=== PATIENT | female | born 1990 ===

== ENCOUNTER 2025-03-04 08:15 | Outpatient (AMB) | payer OTHER, SELFPAY ==
--- OUTSIDE RECORDS SUMMARY | 2025-03-04 09:47 | XMS_ITS | Clinical Summary ---
Author Organization [address] [facility] Address [address] [place] [address] Phone Care Team Providers Care Peer Specialist Name Role Phone Yuki Torres MD Primary Care Provider [phone] Allergies Active Allergy Reactions Criticality Noted Date Comments Latex 09/14/2020 Medications folic acid (FOLVITE) 1 mg tabletIndicatio ns:Adult general medical exam,Screening, anemia, deficiency, iron Take 1 tablet (1 mg total) by mouth 1 (one) time each day. 30 each 11 03/08/2024 03/08/19 26 Active multivitamin with minerals tablet Take 1 tablet by mouth 1 (one) time each day. Active clotrimazole-be tamethasone (LOTRISONE) 1-0.05 % creamIndication s:Skin lesion Apply thin layer to affected area BID for 2 weeks then stop. Avoid face and groin. 30 g 11/29/2024 Active Hospital, Clinic, or Other Facility Administered Medication Ordered Dose Route Frequency Start Date End Date Status acetaminophen (TYLENOL) tablet 500 mgIndications:Chronic bilateral back pain, unspecified back location 500 mg oral Every 6 hours PRN 03/08/2024 Active Active Problems Problem Noted Date Diagnosed Date Prediabetes 12/03/2024 Abdominal pain 02/03/2024 Acne 02/03/2024 Class 2 obesity 02/03/2024 Anxiety 01/31/2023 Depression 07/09/2015 Endometriosis 07/09/2015 Overview (01/25/2024): S/p lap exploratory Dr. Henderson Frequent headaches 02/10/2014 Overview (01/25/2024): CT head negative at [facility] 12/2013 Encounters Date Type Department Care Team Description 12/17/2024 Telephone Internal Medicine - [address] [phone] Sarah Muñoz MA 12/14/2024 11:50 PM EDT - 12/15/2024 4:00 AM EDT Emergency [facility] [address] [place] [address] Chest pain, unspecified type (Primary Dx) Discharge Disposition: Home or Self Care 12/03/2024 Telephone Internal Medicine - [address] [phone] Yuki Torres MD 12/03/2024 [facility] [address] [place] [phone] Loyd Stark NP 12/03/2024 Telephone Internal Medicine - [address] [phone] Yuki Torres MD from Last 3 Months Immunizations Immunization Administration Dates Next Due DTaP (Infanrix) 6wks to less than 7yo ,08/27/1990,1989,1989,1989 Hep B, Unspecified 04/22/2004,02/16/2002, 002 Hepatitis B (Zdpnsol-V-Gcjyh , Recombivax HB-Adult) 19yo and older 01/31/2023,12/26/2022 HiB 06/26/1990 Influenza Quadravalent, MDCK , 0.5ml, preservative free (Flucelvax) 6mo and older 11/11/2022 MMR, measles mumps and rubel la Live (Priorix; M-M-R II) 12mo and older 01/31/2023,12/16/2022,07/26/1994,1990 No Vaccine Administered 05/23/1993,08/27,1989,1989 Td, Unspecified 11/09/2001 Tdap Tetanus diptheria acell ular pertussis (Boostrix; Adacel) 7yo and older 05/10/2019,08/07/2013 Surgical History Surgery Date Site/Laterality Comments SECTION PROCEDURE: DC DELIVERY ONLY; COMMENT: x3 OTHER SURGICAL HISTORY 2009 PROCEDURE: DC UNLISTED PX ABDOMEN MUSCULOSKELETAL SYSTEM; COMMENT: lap for endometriosis PARTIAL HYSTERECTOMY 02/2019 PROCEDURE: DC SUPRACERVICAL ABDL HYSTER W/WO RMVL TUBE OVARY; COMMENT: Dr. Henderson OTHER SURGICAL HISTORY PROCEDURE: HISTORICAL COSMETIC SURGERY; COMMENT: liposuction 09/2018 Medical History Medical History Date Comments Endometriosis 07/09/2015 DX:Endometriosis Depression 07/09/2015 DX:Depression Family History Medical History Relation Name Comments No Known Problems Brother 1 No Known Problems Father Thyroid disease Mother Other: unsure Other No Known Problems Sister 2 Relation Name Status Comments Brother 1 Alive Father Alive Mother Alive Other Sister 2 Alive Social History Tobacco Use Types Packs/Day Years Used Date Smoking Tobacco: Never Smokeless Tobacco: Never Tobacco Cessation:Counseling Given: Not Answered Alcohol Use Standard Drinks/Week Comments Yes 0 (1 standard drink = 0.6 oz pur e alcohol) SOCIALLY Comments No Sex and Gender Information Value Date Recorded Sex Assigned at Not on file Legal Sex Female 8:16 PM EST Gender Identity Not on file Sexual Orientation Not on file Last Filed Vital Signs Vital Sign Reading Time Taken Comments Blood Pressure 114/70 12/15/2024 1:24 AM EDT Pulse 87 12/15/2024 1:24 AM EDT Temperature 36.7 C (98 F) 12/15/2024 1:24 AM EDT Respiratory Rate 20 12/15/2024 1:24 AM EDT Oxygen Saturation 100% 12/15/2024 1:24 AM EDT Inhaled Oxygen Concentration - - Weight 82.1 kg (181 lb) 12/14/2024 8:22 PM EDT Height 160 cm (5' 3 ) 12/14/2024 8:22 PM EDT Body Mass Index 32.06 12/14/2024 8:22 PM EDT Plan of Treatment Upcoming Encounters Date Type Department Care Team (Late st Contact Info) Description 03/11/2025 3:10 PM EST Consult Pulmonology - [address] [place] [address] Chinyere Yeh NP [address] [place] [phone] Health Maintenance Due Date Last Done Comments Cervical Cancer Screening: Pap Smear 2010 HPV Vaccines (1 - 3-dose SCDM series) 01/28/2016 Social Influencers of Health Screening 02/05/2022 Depression Screening 03/06/2024 05/01/2023 COVID-19 Vaccine ( season) 2024 Influenza Vaccine (#1) 2024 11/11/2022 DTaP,Tdap,and Td Vaccines (9 - Td or Tdap) 05/09/2029 05/10/2019, 08/07/2013, 11/09/2001, Additional history exists Cholesterol Screening (Lipid Panel) 11/29/2029 11/29/2024, 05/13/2019 RSV Immunization Adult Patients (1 - 1-dose 75+ series) 01/28/2064 HIB Vaccines Completed 06/26/1990 Hepatitis C Screening Completed 11/25/2020 HIV Screening Completed 01/12/2021 Hepatitis B Vaccines Completed 01/31/2023, 12/26/2022, 04/22/2004, Additional history exists MMR Vaccines Completed 01/31/2023, 12/04, 07/26/1994, Additional history exists Hepatitis A Vaccines Aged Out No long er eligible based on patient's age to complete this topic IPV Vaccines Aged Out No longer eligi ble based on patient's age to complete this topic Meningococcal ACWY Vaccine Aged Out N o longer eligible based on patient's age to complete this topic Meningococcal B Vaccine Aged Out No l onger eligible based on patient's age to complete this topic Pneumococcal Vaccine: Pediatrics (0 to 5 Years) and At-Risk Patients (6 to 49 Years) Aged Out No longer eligible based on patient's age to complete this topic RSV Immunization Patients Under 20 months Aged Out No longer eligible based on patient's age to complete this topic Varicella Vaccines Aged Out No longer eligible based on patient's age to complete this topic Procedures Procedure Name Priority Date/Time Associated Diagnosis Comments CT ANGIO CHEST WO AND/OR W CONTRAST STAT 12/15/2024 2:53 AM EDT Chest pain, unspecified type ACTIVATED PARTIAL THROMBOPLASTIN TIME STAT 12/15/2024 1:51 AM EDT PROTHROMBIN TIME WITH INR STAT 12/15/2024 1:51 AM EDT D-DIMER STAT 12/15/2024 1:51 AM EDT TROPONIN I HIGH SENSITIVITY STAT 12/15/2024 12:20 AM EDT XR CHEST 2 VIEWS STAT 12/14/2024 10:0 1 PM EDT PROCALCITONIN Add-On 12/14/2024 8:45 PM EDT HCG, SERUM, QUALITATIVE STAT Add-on 12/14/2024 8:45 PM EDT CBC WITH AUTO DIFFERENTIAL STAT 12/14/2024 8:45 PM EDT B-TYPE NATRIURETIC PEPTIDE STAT 12/14/2024 8:45 PM EDT MAGNESIUM STAT 12/14/2024 8:45 PM EDT LIPASE STAT 12/14/2024 8:45 PM EDT COMPREHENSIVE METABOLIC PANEL STAT 12/14/2024 8:45 PM EDT CBC AND DIFFERENTIAL STAT 12/14/2024 8:45 PM EDT TROPONIN I HIGH SENSITIVITY Timed 12/14/2024 8:45 PM EDT ECG 12-LEAD STAT 12/14/2024 8:17 PM EDT ECG 12-LEAD Routine 12/03/2024 7:31 AM EDT Chest pain, unspecified type LIPID PANEL WITH REFLEX TO DIRECT LDL Routine 11/29/2024 12:19 PM EDT Chest pain, unspecified type DEPRESSION SCREENING Routine 05/01/2023 HIV SCREENING Routine 01/12/2021 HEPATITIS C SCREENING Routine 11/25/2020 from Last 3 Months or Most Recently Relevant to Health Maintenance Results * CT Angio Chest wo and/or w Contrast (12/15/2024 2:53 AM EDT) Anatomical Region Laterality Modality Body Computed Tomogra phy 12/15/2024 3:31 AM EDT Impressions 12/15/2024 3:31 AM EDT No pulmonary emboli. Mild dilation pulmonary trunk may be indicative of pulmonary arterial hypertension. No infiltrates or edema. This document has been electronically signed by: Joseph Joyce MD on 12/15/2024 03:31:10 Narrative 12/15/2024 3:31 AM EDT INDICATION: pain right side eval PE CT angiography chest with contrast. 3D Postprocessing. Comparison: None provided. Findings: No pulmonary embolism. Mild dilation pulmonary trunk may be indicative of pulmonary arterial hypertension. No thoracic aortic aneurysm. No cardiomegaly. No focal infiltrates or masses. No edema. No pneumothorax No significant pleural effusion. No adenopathy. No acute upper abdominal pathology. No acute chest wall pathology. No acute fracture or dislocation. Procedure Note Joseph Joyce MD - 12/15/2024 INDICATION: pain right side eval PE CT angiography chest with contrast. 3D Postprocessing. Comparison: None provided. Findings: No pulmonary embolism. Mild dilation pulmonary trunk may be indicativeof pulmonary arterial hypertension. No thoracic aortic aneurysm. No cardiomegaly. No focal infiltrates or masses. No edema. No pneumothorax No significant pleural effusion. No adenopathy. No acute upper abdominal pathology. No acute chest wall pathology. No acute fracture or dislocation. IMPRESSION: No pulmonary emboli. Mild dilation pulmonary trunk may be indicative of pulmonary arterial hypertension. No infiltrates or edema. This document has been electronically signed by: Joseph Joyce MD on 12/15/2024 03:31:[address] IM[address] PROCEDURES Final Res ult * APTT (12/15/2024 1:51 AM EDT) aPTT 33.0 24.1 - 39.3 sec LAB COAGULATION METHOD 12/15/2024 2:10 AM EDT [facility] Blood Venous blood specimen / Unknown Venipuncture / Unknown 12/15/2024 1:51 AM EDT 12/15/2024 1:55 AM EDT Mohsen VALERIO LAB BLOOD ORDERABLES Final Result Performing Organization Address [facility] de Phone Number [facility] [address] [place] [address], [place] [phone] * Protime-INR (12/15/2024 1:51 AM EDT) [facility] Protime 13.8 10.6 - 13.9 sec LAB COAGULATION METHOD 12/15/2024 2:10 AM EDT [facility] INR 1.1 LAB COAGULATION METHOD 12/15/2024 2:10 AM EDT [facility] Blood Venous blood specimen / Unknown Venipuncture / Unknown 12/15/2024 1:51 AM EDT 12/15/2024 1:55 AM EDT us Mohsen VALERIO LAB BLOOD ORDERABLES Final Result Performing Organization Address [facility]/ZIP Co de Phone Number [facility] [address] [place] [address], [place] [phone] * D-Dimer (Quantitative) (12/15/2024 1:51 AM EDT) D-Dimer, Quant (D-DU) 155 <=230 ng/mL DDU LAB COAGULATION METHOD 12/15/2024 2:10 AM EDT [facility] Blood Venous blood specimen / Unknown Venipuncture / Unknown 12/15/2024 1:51 AM EDT 12/15/2024 1:55 AM EDT [facility] - 12/15/2024 2:10 AM EDT D-Dimer <230 ng/mL (D-Dimer units) is the threshold for exclusion of DVT/PE. D-Dimer may be elevated in: Critically ill, severely infected, trauma patients, DIC, acute CVA, acute ND, unstable angina, AF, old age, , and smoking. D-Dimer may be decreased with: Initiation of heparin therapy and oral anticoagulants. Mohsen VALERIO LAB BLOOD ORDERABLES Final Result [facility] [address] [place] [address], * Troponin I high sensitivity (12/15/2024 12:20 AM EDT) Only the most recent of2 resultswithin the time period is included. High Sensitivity Troponin I <3 <=54 ng/L LAB CHEMISTRY METHOD 12/15/2024 1:11 AM EDT [facility] Blood Venous blood specimen / Unknown Venipuncture / Unknown 12/15/2024 12:20 AM EDT 12/15/2024 12:41 AM EDT [facility] - 12/15/2024 1:11 AM EDT High levels of biotin in samples may falsely decrease hsTroponin values. Use caution when interpreting hsTroponin results in patients taking biotin who exhibit renal impairment (eGFR <60) or in patients taking more than 20 mg/day of biotin. us Mohsen VALERIO LAB BLOOD ORDERABLES Final Result [facility] [address] [facility] [place] [address], * XR Chest 2 Views (12/14/2024 10:01 PM EDT) Anatomical Region Laterality Modality Body Radiographic Kika ging 12/15/2024 12:1 0 PM EDT Impressions 12/15/2024 12:10 PM EDT No evidence of active pulmonary disease. [id number] -------- FINAL REPORT -------- Dictated By: Shannan Prabhakar Dictated Date: 12/15/2024 12:10 ET Assigned Physician: Shannan Prabhakar Reviewed and Electronically Signed By: Shannan Prabhakar Signed Date: 12/15/2024 12:10 ET Workstation ID: [id number] Transcribed By: Self Edit Transcribed Date: 12/15/2024 12:10 ET Narrative 12/15/2024 12:10 PM EDT INDICATION: Chest pain FINDINGS: Two views of the chest were obtained. There are no prior studies available for comparison. Lung colunga are well inflated without infiltrates or effusions. Cardiomediastinal silhouette is normal in size and shape. Bony structures are within normal limits for the patient's age. Procedure Note Shannan Prabhakar MD - 12/15/2024 INDICATION: Chest pain FINDINGS: Two views of the chest were obtained. There are no prior studiesavailable for comparison. Lung colunga are well inflated without infiltrates or effusions. Cardiomediastinal silhouette is normal in size and shape. Bony structures are within normal limits for the patient's age. IMPRESSION: No evidence of active pulmonary disease. [id number] -------- FINAL REPORT -------- Dictated By: Shannan Prabhakar Dictated Date: 12/15/2024 12:10 ET Assigned Physician: Shannan Prabhakar Reviewed and Electronically Signed By: Shannan Prabhakar Signed Date: 12/15/2024 12:10 ET Workstation ID: [id number] Transcribed By: Self Edit Transcribed Date: 12/15/2024 12:10 ET Mohsen VALERIO IMG XR PROCEDURES Final Res ult * Procalcitonin (12/14/2024 8:45 PM EDT) Pathologist [facility] Procalcitonin <0.02 <=0.16 ng/mL LAB CHEMISTRY METHOD 12/15/2024 10:47 AM EDT [facility] Blood Venous blood specimen / Unknown Venipuncture / Unknown 12/14/2024 8:45 PM EDT 12/14/2024 8:53 PM EDT Narrative [facility] - 12/15/2024 10:47 AM EDT Procalcitonin > 2.00 ng/ml: Procalcitonin Levels above 2.00 ng/ml, on the first day of ICU admission represent a high risk for progression to severe sepsis and/or septic shock. Procalcitonin < 0.50 ng/ml: Procalcitonin levels below 0.50 ng/ml on the first day of ICU admission represent a low risk for progression to severe sepsis and/or septic shock. Concentrations <0.5 ng/mL do not exclude an infection, on account of local ized infections (without systemic signs) which can be associated with such low concentrations, or a systemic infection in its initial stages (<6 hours). Furthermore, increased procalcitonin can occur without infection. PCT concentrations between 0.5 and 2.0 ng/mL should be interpreted taking into account the patient's history. It is recommended to retest PCT within 6-24 hours if any concentrations <2.0 ng/mL are obtained. Mohsen VALERIO LAB BLOOD ORDERABLES Final Result [facility] [address] [place] [address], [place] [phone] * (ABNORMAL) CBC auto differential (12/14/2024 8:45 PM EDT) Pathologist [facility] WBC 6.3 4.8 - 10.8 K/mcL LAB HEMETOLOGY METHOD 12/14/2024 8:59 PM EDT [facility] RBC 4.70 3.80 - 4.80 M/mcL LAB HEMETOLOGY METHOD 12/14/2024 8:59 PM EDT [facility] Hemoglobin 11.7 11.5 - 16.0 g/dL LAB HEMETOLOGY METHOD 12/14/2024 8:59 PM EDT [facility] Hematocrit 36.7 35.0 - 47.0 % LAB HEMETOLOGY METHOD 12/14/2024 8:59 PM EDT [facility] MCV 78.8(L) 79.0 - 98.0 FL LAB HEMETOLOGY METHOD 12/14/2024 8:59 PM EDT [facility] MCH 25.1(L) 27.0 - 32.0 pcg LAB HEMETOLOGY METHOD 12/14/2024 8:59 PM EDT [facility] MCHC 31.9(L) 32.0 - 37.0 g/dL LAB HEMETOLOGY METHOD 12/14/2024 8:59 PM EDT [facility] RDW 12.8 11.0 - 15.0 % LAB HEMETOLOGY METHOD 12/14/2024 8:59 PM EDT [facility] Platelets 302 130 - 400 K/[facility] LAB HEMETOLOGY METHOD 12/14/2024 8:59 PM EDT [facility] MPV 10.1 7.0 - 11.0 FL LAB HEMETOLOGY METHOD 12/14/2024 8:59 PM EDT [facility] NRBC 0.0 <1.0 % LAB HEMETOLOGY METHOD 12/14/2024 8:59 PM EDT [facility] NRBC Absolute 0.00 <0.10 K/[facility] LAB HEMETOLOGY METHOD 12/14/2024 8:59 PM EDT [facility] Neutrophils Relative 56.4 % LAB HEMETOLOGY METHOD 12/14/2024 8:59 PM EDT [facility] Lymphocytes Relative 37.6 % LAB HEMETOLOGY METHOD 12/14/2024 8:59 PM EDT [facility] Monocytes Relative 4.4 % LAB HEMETOLOGY METHOD 12/14/2024 8:59 PM EDT [facility] Eosinophils Relative 1.1 % LAB HEMETOLOGY METHOD 12/14/2024 8:59 PM EDT [facility] Basophils Relative 0.3 % LAB [facility]OLOGY [facility] Immature Granulocytes Relative 0.2 % LAB HEMETOLOGY METHOD 12/14/2024 8:59 PM [facility] Neutrophils Absolute 3.56 1.50 - 7.00 K/mcL LAB HEMETOLOGY METHOD 12/14/2024 8:59 PM EDT [facility] Lymphocytes Absolute 2.37 1.00 - 5.00 K/mcL LAB HEMETOLOGY METHOD 12/14/2024 [facility] Monocytes Absolute 0.28 0.20 - 1.00 K/mcL LAB HEMETOLOGY METHOD 12/14/2024 8:[facility] Eosinophils Absolute 0.07 0.00 - 0.50 K/mcL LAB HEMETOLOGY METHOD 12/14/2024 8:59 PM EDT [facility] Basophils Absolute 0.02 0.00 - 0.20 K/mcL LAB HEMETOLOGY METHOD 12/14/2024 8:59 PM [facility] Immature Granulocytes Absolute 0.01 0.00 - 0.03 K/mcL LAB HEMETOLOGY METHOD 12/14/2024 8:59 PM [facility] Blood Venous blood specimen / Unknown Venipuncture / Unknown 12/14/2024 8:45 PM EDT 12/14/2024 8:53 PM EDT us Mohsen VALERIO LAB BLOOD ORDERABLES Final Result Performing Organization Address [facility]/ZIP Co de Phone Number [facility] [address] [place] [address], [place] [phone] * hCG, serum, qualitative (12/14/2024 8:45 PM EDT) [facility] hCG Qual Negative Negative 12/14/2024 9:51 PM EDT [facility] Blood Venous blood specimen / Unknown Venipuncture / Unknown 12/14/2024 8:45 PM EDT 12/14/2024 8:53 PM EDT us Mohsen VALERIO LAB BLOOD ORDERABLES Final Result Performing Organization Address [facility] Co de Phone Number [facility] [address] [place] [address], [place] [phone] * B-type natriuretic peptide (12/14/2024 8:45 PM EDT) [facility] BNP <2 <=100 pcg/mL LAB CHEMISTRY METHOD 12/14/2024 9:27 PM EDT [facility] Blood Venous blood specimen / Unknown Venipuncture / Unknown 12/14/2024 8:45 PM EDT 12/14/2024 8:53 PM EDT us Mohsen VALERIO LAB BLOOD ORDERABLES Final Result Performing Organization Address [facility]/ZIP Co de Phone Number [facility] [address] [place] [address], [place] [phone] * Magnesium (12/14/2024 8:45 PM EDT) [facility] Magnesium 2.2 1.9 - 2.6 mg/dL LAB CHEMISTRY METHOD 12/14/2024 9:19 PM EDT [facility] Blood Venous blood specimen / Unknown Venipuncture / Unknown 12/14/2024 8:45 PM EDT 12/14/2024 8:53 PM EDT Mohsen VALERIO LAB BLOOD ORDERABLES Final Result Performing Organization Address City/[facility]/ZIP Co de Phone Number [facility] [address] [place] [address], [place] [phone] * Lipase (12/14/2024 8:45 PM EDT) Pathologist [facility] Lipase 35 13 - 75 unit/L LAB CHEMISTRY METHOD 12/14/2024 9:22 PM EDT [facility] Blood Venous blood specimen / Unknown Venipuncture / Unknown 12/14/2024 8:45 PM EDT 12/14/2024 8:53 PM EDT Mohsen VALERIO LAB BLOOD ORDERABLES Final Result Performing Organization Address City/[facility]/ZIP Co de Phone Number [facility] [address] [place] [address], [place] [phone] * Comprehensive metabolic panel (12/14/2024 8:45 PM EDT) Pathologist [facility] Sodium 138 133 - 145 mmol/L LAB CHEMISTRY METHOD 12/14/2024 9:19 PM EDT [facility] Potassium 3.8 3.5 - 5.5 mmol/L LAB CHEMISTRY METHOD 12/14/2024 9:19 PM EDT [facility] Chloride 104 96 - 110 mmol/L LAB CHEMISTRY METHOD 12/14/2024 9:19 PM EDT [facility] CO2 28 21 - 32 mmol/L LAB CHEMISTRY METHOD 12/14/2024 9:19 PM EDT [facility] Anion Gap 6 3 - 11 LAB CHEMISTRY METHOD 12/14/2024 9:19 PM [facility] Glucose 97 70 - 100 mg/dL LAB CHEMISTRY METHOD 12/14/2024 9:19 PM [facility] BUN 10 5 - 25 mg/dL LAB CHEMISTRY METHOD 12/14/2024 9:19 PM [facility] Creatinine 0.63 0.50 - 1.10 mg/dL LAB CHEMISTRY METHOD 12/14/2024 9:19 PM [facility] eGFR 119 >=60 mL/min/1. 73m2 LAB CHEMISTRY METHOD 12/14/2024 9:19 PM [facility] Comment:Calculation based on the Chronic Kidney Disease Epidemiology Collaboration (CKD-EPI) equation refit without adjustment for race. BUN/Creatinine Ratio 15.9 LAB CHEMISTRY METHOD 12/14/2024 9:19 PM [facility] Calcium 9.7 8.5 - 10.5 mg/dL LAB CHEMISTRY METHOD 12/14/2024 9:19 PM [facility] AST (SGOT) 18 10 - 42 unit/L LAB CHEMISTRY METHOD 12/14/2024 9:19 PM [facility] ALT (SGPT) 33 10 - 60 unit/L LAB CHEMISTRY METHOD 12/14/2024 9:19 PM [facility] Alkaline Phosphatase 74 42 - 121 unit/L LAB CHEMISTRY METHOD 12/14/2024 9:19 PM [facility] Total Protein 7.7 6.0 - 8.0 g/dL LAB CHEMISTRY METHOD 12/14/2024 9:19 PM [facility] Albumin 4.4 3.2 - 5.0 g/dL LAB CHEMISTRY METHOD 12/14/2024 9:19 PM [facility] Total Bilirubin 0.4 0.0 - 1.4 mg/dL LAB CHEMISTRY METHOD 12/14/2024 9:19 PM [facility] Blood Venous blood specimen / Unknown Venipuncture / Unknown 12/14/2024 8:45 PM EDT 12/14/2024 8:53 PM EDT Mohsen VALERIO LAB BLOOD ORDERABLES Final Result Performing Organization Address [facility] Co de Phone Number [facility] [address] [place] [address], [place] [phone] * ECG 12 lead (12/14/2024 8:17 PM EDT) Only the most recent of2 resultswithin the time period is included. Ventricular Rate ECG 85 BPM GEMUSE Atrial Rate 85 BPM GEMUSE P-R Interval 144 ms GEMUSE QRS Duration 76 ms GEMUSE Q-T Interval 362 ms GEMUSE QTc 430 ms GEMUSE P Wave [place] 8 degrees GEMUSE R [place] 14 degrees GEMUSE T [place] 6 degrees GEMUSE ECG Interpretation Normal sinus rhythm Low voltage QRS Borderline ECG When compared with ECG of 28-MAR-2010 20:07, No significant change was found Confirmed by Rosalia WELCH JOHN ([id number]) on 12/15/2024 11:47:26 AM GEMUSE 12/14/2024 8:17 PM EDT 12/15/2024 11:47 AM EDT Mohsen VALERIO ECG ORDERABLES Final Resul t Performing Organization Address [facility] Co de Phone Number GEMUSE * (ABNORMAL) Lipid panel with reflex to direct LDL (11/29/2024 12:19 PM EDT) Cholesterol 207(H) 0 - 200 mg/dL LAB CHEMISTRY METHOD 11/29/2024 6:05 PM EDT [facility] Triglycerides 166(H) 0 - 150 mg/dL LAB CHEMISTRY METHOD 11/29/2024 6:05 PM EDT [facility] HDL 55 >=40 mg/dL LAB CHEMISTRY METHOD 11/29/2024 6:05 PM EDT [facility] LDL Calculated 119(H) 0 - 100 mg/dL LAB CHEMISTRY METHOD 11/29/2024 6:05 PM EDT [facility] Comment:Estimated LDL Calcul ated using equation: Total cholesterol - HDL cholesterol - (Triglycerides/5) VLDL Cholesterol Miguel 33.2 mg/dL LAB CHEMISTRY METHOD 11/29/2024 6:05 PM EDT [facility] Non HDL Chol. (LDL+VLDL) 152(H) <145 mg/dL LAB CHEMISTRY METHOD 11/29/2024 6:05 PM EDT [facility] Chol/HDL Ratio 3.8 0.0 - 4.4 LAB CHEMISTRY METHOD 11/29/2024 6:05 PM T [facility] Blood Venous blood specimen / Unknown Venipuncture / Unknown 11/29/2024 12:19 PM EDT 11/29/2024 12:19 PM EDT Loyd Stark APPROVER LAB BLOOD ORDERABLES Final Res ult [facility] [address] [place] [address], * Depression Screening (05/01/2023) Depression Screening abstracted Historical Provider HEALTH MAINTENANCE Final Result * HIV Screening (01/12/2021) Pathologist [facility] HIV Screening abstracted Historical Provider HEALTH MAINTENANCE Final Result * Hepatitis C Screening (11/25/2020) Pathologist [facility] Hepatitis C Screening abstracted Historical Provider HEALTH MAINTENANCE Final Result from Last 3 Months or Most Recently Relevant to Health Maintenance Insurance [facility] Care Teams Peer Specialist Relationship Specialty Start Date End Date Yuki Torres MD [address] [place] [id number] PCP - General Internal Medicine 11/11/24
--- NOTE | 2025-03-04 16:29 | MHC.OFFVISWM ---
VS Expanded 03/04/25 16:38 Height 5 ft 3 in Weight 178 lb 6 oz BMI 31.6 Body Fat % 35.8 Body Fat Mass 64 Fat Free Mass 114.6 Visceral Fat Rating 7 Body Water % 46 Body Water Mass 82.2 Basal Metabolic Rate/Score 1,580 Intake Visit Reasons: [employer] [facility] BMI 31.6 Allergies latex Allergy (Unknown, Verified 03/04/25 16:30) Unknown Medication List - Last Reconciled 03/04/25 by Grady Godoy MD multivitamin 1 tab PO DAILY HPI HPI [employer] [facility] BMI 31.6: Details: Start time: 4.25m, End time: 4.56pm ?I spent 26 minutes speaking with the patient on the phone plus an additional 5 minutes reviewing and updating records for a total of 31 minutes HPI Comments Details: Previous weight loss efforts: self diet and exercise, [place] Wakes up: 7.30am, Sleeps: 10pm Breakfast: skips Lunch: skips Dinner: 7.30pm (rice, beans, meat. vegetables) Snacks: none Exercise: none Beverages: Coffee (1-2 cups/d with creamer, Tea: daily (1 cup/d, plain), Soda: Regular coke (2-3 cans/d), Juice: none, ETOH: 1/wk (beer: >10 beers/d) PFSH Medical History (Updated 03/04/25 @ 16:45 by Grady Godoy MD) BMI 31.0-31.9,adult Obesity Surgical History (Updated 03/04/25 @ 16:33 by Grady Godoy MD) Hx of appendectomy History of delivery Hx of plastic surgery Hx of hysterectomy Family History (Updated 01/06/25 @ 15:27 by Kim Yang CMA) Mother Diabetes Thyroid condition Social History (Updated 01/06/25 @ 15:28 by Kim Yang CMA) Alcohol intake: current Alcohol intake frequency: holidays/special occasions only Patient Tobacco Use Status: Never used Tobacco Telehealth Telehealth Telehealth Platform: Telephone Location of provider rendering services: practice address Location of patient: address on file Patient Identification confirmed using: Name, : Yes Telehealth method: voice only Patient verbally consented to treatment: Yes Patient verbally consented to billing insurance company: Yes Patient informed of any privacy concerns related to visit: Yes Minutes spent on Phone/Video with Pt.: 31 Assessment & Plan Assessment & Plan (1) Obesity: Code(s): E66.9 - Obesity, unspecified Category: Medical Qualifiers: Obesity type: due to excess calories Obesity classification: adult class 1 (BMI 30 - 34.9) Serious obesity comorbidity presence: without serious comorbidity Body mass index: BMI 31.0-31.9 Qualified Code(s): E66.811 - Obesity, class 1; E66.09 - Other obesity due to excess calories; Z68.31 - Body mass index [BMI] 31.0-31.9, adult Plan: 1. Nutritional counseling. Start with one premade PREMIER protein (buy at [employer] or [employer]) shake (mix 4oz of Premier mixed with 4oz low fat unsweetened almond milk each) at 8am-10am, one protein bar (Fit Crunch protein bar, buy at [employer], or [employer]) at 11am-1pm, another premade PREMIER protein shake (mix 4oz of Premier mixed with 4oz low fat unsweetened almond milk each) at 2pm-4pm, dinner at 5pm (8 forks of protein and 8 forks of salad/vegetables) and another [employer]unch protein bar at 7pm-9pm. So you do 2 protein shakes, 2 protein bars and one meal per day. Meal to include lean meat (beef, fish, pork, turkey, chicken), or tajik yogurt, or egg whites, or beans with a salad with olive oil and fruits (berries, pears, apples, kiwi). Avoid salt, breads, potatoes, rice, pasta, desserts. 2. Each shake would be drunk slowly, like coffee in a period of 2 hours. 3. Cut each bar in 4 pieces and eat each piece in 30min ?to make each bar last 2 hours. 4. I emphasized the importance of measuring accurately the food portion and measure it when serving the food in plate 5. The meal portions include 8 full-size forks of meat and 8 full-size forks of salad. You always eat the meat portion but you can replace up to 4 forks for salad/vegetables with rice, potatoes or pasta, or a fruit ?if you like. The less you do it the better weight loss will be. 6. One full-size fork is what it can be scooped on the fork without falling aside and not what can be bit with the fork. Use regular forks like those you find in a typical restaurant. 7.? Please buy the body composition scale we discussed and send me weight measurements as soon as possible and then once a week. Always include your diet and exercise plan. 8. Start Phentermine one pill per day at 10am daily. Do not start the Phentermine before you have the body composition scale and the blood pressure monitor. We discussed the potential side-effects of the Phentermine such as irritability, dry mouth, difficulty sleeping, dizziness, numbness in feet and high blood pressure. I asked her to get a blood pressure monitor and measure the blood pressure daily in the morning and evening. She needs to send the blood pressure readings daily and to call the office for blood pressure over 140/80 and she understands that. 9. The best choice would be to purchase a stationary bike at home that can track calories. If you get one, please start stationary bike at a resistance level of 4.0 Increase level by 1.0 every 3 min to a max level of 10.0. Stay at this level for 3 min and then return to level 4.0 and repeat same steps until 300 calories are burned. Goal is to burn 2000 calories per week on exercise 10. Goal is to lose at least 1.5-2lbs per week 11. Goal to lose 10% of your weight before surgery, which is about 18lbs. Ultimate weight goal: 160lbs before surgery 12. Please follow the diet plan exactly without any change. If you don't like something about the plan or you feel hungry you need to communicate with me so I can help you revise the plan. You should not change the plan yourself Medications: New phentermine must administer 30 minutes before or 1-2 hours after breakfast 37.5 mg PO DAILY 30 tabs 0RF E66.09 - Other obesity due to excess calories, E66.811 - Obesity, class 1, Z68.31 - Body mass index [BMI] 31.0-31.9, adult
[2025-03-04 16:38] VITALS: BMI 31.6
== END 2025-03-04 16:57 | disposition home or self-care (01) ==
LOC: HO.HBS 08:15
PROVIDERS: PCP Nurse Practitioner Primary Care; Visit Provider Surgery
DX: E66.811 Obesity, class 1 (principal); E66.09 Other obesity due to excess calories; Z68.31 Body mass index [BMI] 31.0-31.9, adult
CPT/HCPCS: 99203